=== PATIENT | male | born 1950 | race Caucasian/White ===

== ENCOUNTER 2023-09-27 18:20 | Emergency (ER) | payer OTHER, SELFPAY ==
[2023-09-27 18:30] VITALS: BP 134/82
--- NOTE | 2023-09-27 20:35 | ED.GENMED ---
History of Present Illness
General
Chief Complaint: DVT/Possible Blood Clot
Time Seen by Provider: 09/27/23 19:34
History of Present Illness
History of Present Illness:
73-year-old male presents the emergency department for evaluation of diffuse right leg swelling and discomfort for the past 2 to 3 days. He notes that approximately 3 weeks ago he traveled by car to [place] and also admits to recent
depression that is left him quite sedentary. No history of DVT. No numbness to the right leg. Denies fevers
Past History
Past History
ED Past Medical History: Other (Diverticulosis, kidney stones)
ED Past Surgical History: Orthopedic (Knee surgeries)
Social History
Tobacco: Non-smoker
Alcohol: None
Drug: None
Living: with family
Employment: Employed
Review of Systems
Review of Systems
Allergies reviewed?: Yes
All Other Systems: ROS reviewed and negative except as documented in HPI and ROS
Phy Exam
Physical Exam
Physical Exam:
GEN: Well appearing, NAD, WDWN
HEENT: Oral mucosa moist, no scleral icterus
Cardiac: Regular rate
Lung: No respiratory distress, no tachypnea
MSK: Moderate to severe edema of the right lower extremity from the foot to the thigh. Right dorsalis pedis pulse is strong and sensation is normal
Skin: Good color, no pallor or jaundice, no rashes
Neuro: AO x3, moves all extremities freely
Psych: Calm, cooperative
Course
Orders/Labs/Results
Orders:
Orders
09/27/23 18:32
US Periph Venous LOWER Ext RT Urgent
Comment: .
Reason For Exam: right calf swelling with pain
09/27/23 20:36
Apixaban [Eliquis] 10 mg PO BID ONE
Vital Signs
Initial and Last Documented VS:
Initial Vital Signs
Temp Pulse Resp BP Pulse Ox
98.2 F 66 16 134/82 98
09/27/23 18:30 09/27/23 18:30 09/27/23 18:30 09/27/23 18:30 09/27/23 18:30
Last Documented Vital Signs
Temp Pulse Resp BP Pulse Ox
98.2 F 70 18 142/85 96
09/27/23 18:30 09/27/23 21:03 09/27/23 21:03 09/27/23 21:03 09/27/23 21:03
MDM/Problems Addressed
MDM/Problems Addressed:
Ultrasound reveals extensive DVT of the right lower extremity. This is likely provoked by sedentary lifestyle and recent prolonged travel. Will start the patient on Eliquis, discussed PCP follow-up in 2 to 3 weeks for reimaging and further
discussion of duration of therapy
*Critical Care Note
Total Time (30-74mins, 75-104mins- exclusive of procedures): Not Applicable
ED Attending Note
-
Portions of this chart may have been created with voice recognition software.� Occasional wrong word or��sound alike� substitutions may have occurred due to the inherent limitations of voice recognition software.
Discharge Plan
Departure
Patient Disposition: Home (Routine Discharge)
Date of Disposition: 09/27/23
Time of Disposition: 20:36
Patient with high blood pressure during this ER visit?: No
Discharge Problem:
Acute deep vein thrombosis (DVT) of right lower extremity
Instructions: Deep Vein Thrombosis (Blood Clots in the Legs) (DC), Apixaban, Taking oral medicines for blood clots
Prescriptions:
New
Eliquis DVT-PE Treat 30D Start 5 mg (74 tabs) tablets,dose pack
See Rx Instructions .ROUTE .COMPLEX Qty: 74 0RF
Rx Instructions:
orally per package directions
No Action
pantoprazole [Protonix] 40 MG tablet,delayed release (DR/EC)
40 mg PO QPM
tamsulosin 0.4 MG capsule
0.4 mg PO QPM
pravastatin 20 MG tablet
20 mg PO QPM
finasteride 5 MG tablet
5 mg PO DAILY
Referrals:
Srinath Richardson MD [Family Provider] -
Interventions
Interventions:
*Neglect/Abuse Screening Last Done: 09/27/23 20:04
*Nursing Disposition Last Done: 09/27/23 21:04
ED- Cardiac Assessment Last Done: 09/27/23 20:04
ED- Pulmonary Assessment Last Done: 09/27/23 20:04
ED-Peripheral Vascular Assessment Last Done: 09/27/23 20:04
ED-Skin Assessment Last Done: 09/27/23 20:04
Discharge Date and Time
Discharge Date/Time: 09/27/23 21:05
Print Language: FAROESE
[2023-09-27] MEDS: ELIQUIS 10 MG PO (20:40)
[2023-09-27 21:03] VITALS: BP 142/85
== END 2023-09-27 21:05 | disposition home or self-care (01) ==
LOC: EMR 18:20
PROVIDERS: EMERGENCY PHYSICIAN Emergency Medicine; FAMILY PHYSICIAN Family Medicine
DX: I82.401 Acute embolism and thrombosis of unspecified deep veins of right lower extremity (principal); R22.41 Localized swelling, mass and lump, right lower limb; Z79.01 Long term (current) use of anticoagulants; Z87.442 Personal history of urinary calculi
CPT/HCPCS: 99284; 93971

== ENCOUNTER → 2024-03-27 07:17 | Outpatient (REF) | payer OTHER, SELFPAY | LOC: RAD 07:17 | PROVIDERS: ATTENDING PHYSICIAN Family Medicine | DX: I82.401 Acute embolism and thrombosis of unspecified deep veins of right lower extremity (principal) | CPT/HCPCS: 93971 ==

== ENCOUNTER → 2024-07-03 11:59 | Outpatient (REF) | payer OTHER, SELFPAY | LOC: DHSLP 11:59 | PROVIDERS: ATTENDING PHYSICIAN Family Medicine | DX: G47.33 Obstructive sleep apnea (adult) (pediatric) (principal); R06.83 Snoring | CPT/HCPCS: 95800 ==

== ENCOUNTER → 2024-09-26 06:30 | Outpatient (REF) | payer OTHER, SELFPAY | LOC: RAD 06:30 | PROVIDERS: ATTENDING PHYSICIAN Internal Medicine Hematology & Oncology; FAMILY PHYSICIAN Family Medicine | DX: I82.411 Acute embolism and thrombosis of right femoral vein (principal) | CPT/HCPCS: 93971 ==